=== PATIENT | male | born 2000 | race Caucasian/White ===

== ENCOUNTER 2020-07-23 03:07 | Emergency (ER) | payer OTHER ==
[~2020-07-23] VITALS: Ht 177.8 cm; Wt 65.8 kg
[2020-07-23 03:10] VITALS: BP 121/72
[2020-07-23] MEDS ORDERED: TDAP [DIPH/PERTUSSIS/TET] 0.5 ML VIAL IM ONE ×2 (03:25→03:30)
--- NOTE | 2020-07-23 03:30 | NUR ---
emt at bed side for wound care
[2020-07-23] MEDS ORDERED: LIDOCAINE 1%-EPI 1:100,000 20 ML VIAL ONE (03:45)
--- NOTE | 2020-07-23 03:45 | NUR ---
at bed side for laceration care
== END 2020-07-23 04:31 | disposition home or self-care (01) ==
LOC: ER 03:11
DX: S01.111A Laceration without foreign body of right eyelid and periocular area, initial encounter (principal); S09.8XXA Other specified injuries of head, initial encounter; F17.200 Nicotine dependence, unspecified, uncomplicated; V49.59XA Passenger injured in collision with other motor vehicles in traffic accident, initial encounter; Y93.89 Activity, other specified; Y92.488 Other paved roadways as the place of occurrence of the external cause; Y99.8 Other external cause status
CPT/HCPCS: 12011; 99282; J3490; 90715